=== PATIENT | male | born 1970 | race Hispanic/Latino ===

== ENCOUNTER 2017-05-04 18:16 | Inpatient (IN) | payer BC ==
[2017-05-04 18:24] VITALS: RESP 18
--- NOTE | 2017-05-04 18:34 | C.PDOC ---
History Of Present Illness 46 y/o male transferred from [facility] for admission under Dr. Lopez for Major depressive disorder. Patient states he is pending a divorce and has been feeling depressed with associated suicidal ideation. Patient reports yesterday he grabbed a knife and tried to cut his throat but did not actually cut himself. No other physical complaints at this time. Time Seen by Provider: 05/04/17 18:22 Chief Complaint (Nursing): Medical Clearance History Per: Patient History/Exam Limitations: no limitations Onset/Duration Of Symptoms: Days Current Symptoms Are (Timing): Still Present Past Medical History Reviewed: Historical Data, Nursing Documentation, Vital Signs Vital Signs: Last Vital Signs Temp 97.6 F 05/04/17 18:18 Pulse 73 05/04/17 18:18 Resp 18 05/04/17 18:18 BP 150/90 05/04/17 18:18 Pulse Ox 96 05/04/17 18:35 - Medical History PMH: Depression Surgical History: No Surg Hx Family History: States: No Known Family Hx - Social History Hx Alcohol Use: No Hx Substance Use: No Review Of Systems Constitutional: Negative for: Fever, Chills Cardiovascular: Negative for: Chest Pain Gastrointestinal: Negative for: Nausea, Vomiting Psych: Positive for: Depression, Suicidal ideation. Negative for: Anxiety Physical Exam - Physical Exam Appears: Non-toxic, No Acute Distress Skin: Warm, Dry, No Rash Head: Atraumatic, Normacephalic Eye(s): bilateral: Normal Inspection Oral Mucosa: Moist Neck: Normal ROM, Supple Cardiovascular: Rhythm Regular Respiratory: Normal Breath Sounds, No Rales, No Rhonchi, No Wheezing Gastrointestinal/Abdominal: Soft, No Tenderness, No Guarding, No Rebound Extremity: Normal ROM, Capillary Refill (<2 seconds) Neurological/Psych: Oriented x3, Normal Speech, Normal Cognition ED Course And Treatment O2 Sat by Pulse Oximetry: 96 (RA) Pulse Ox Interpretation: Normal Medical Decision Making Medical Decision Making: Progress: Patient is medically cleared and accepted to Dr. Lopez for Major depressive disorder. Disposition - Disposition Disposition: HOSPITALIZED Disposition Time: 18:30 Condition: STABLE - POA Present On Arrival: None - Clinical Impression Clinical Impression: Major depressive disorder - Scribe Statement The provider has reviewed the documentation as recorded by the Scribgeorgette Min All medical record entries made by the Scribe were at my direction and personally dictated by me. I have reviewed the chart and agree that the record accurately reflects my personal performance of the history, physical exam, medical decision making, and the department course for this patient. I have also personally directed, reviewed, and agree with the discharge instructions and disposition.
--- NOTE | 2017-05-04 19:55 | PCM.BM ---
<Tabatha Landry - Last Filed: 05/04/17 19:53> Treatment Plan Problems - Problems identified on initial assessmt Depression Date Initiated: 05/04/17 Time Initiated: 07:15 Suicidal ideatin Date Initiated: 05/04/17 Time Initiated: 19:55 Status: Monitor Treatment assets and liabiliti Patient Assests: cooperative, physically healthy - Milieu Protocol Maintain good personal hygiene: every shift Encourage regular showers, every shift Remind patient to perform daily oral care, every shift Assist patient to perform ADL's Maintain personal safety: every shift Educate patient to report safety concerns to staff, every shift Monitor environment for contraband/sharps Medication safety: Monitor for expected outcome, potential side effects: every shift, Assess barriers to learning: every shift, Assess readiness for medication education: every shift <Trina Serrano - Last Filed: 05/06/17 10:08> Discharge/Continuing Care - Education Needs Education Needs: Patient Medication, Patient Coping Skills - Discharge Discharge Criteria: Tolerates medication w/o severe side effects, Free of Suicidal thoughts, Reduction of target symptoms <Good Lopez - Last Filed: 05/06/17 10:43> - Diagnosis (1) Major depressive disorder Status: Acute Interventions: 05/06/17 10:43 * Assess/adjust medications daily and /or as needed * See patient on an individual basis 7x/week to assess symptoms of depression * Monitor for side effects & effectiveness of medications *
--- NOTE | 2017-05-05 11:44 | PCM.PSYCH ---
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 Patient states he is currently going through a divorce with his as they have grown apart. He states they were previously for 2 years and he moved out and then he moved back in to work on the marriage but nothing has changed. He states initially it was his idea for a divorce as they were living like roommates. However this past week it just randomly hit him that they are getting a divorce. He states he went to see his nurse practitioner Helen Rosenberg yesterday because he was feeling anxious and he told her he had a knife. He denies having a plan to commit suicide. He denies thoughts of hurting himself or others. He denies hearing voices or seeing things. He states this is his first time being admitted to a psychiatric unit. Denies illicit drug use, denies alcohol or smoking. Psych History: Depression, He states 4 years ago when he was changing jobs he felt depressed and was told he had adjustment disorder. Medical History: denies Family History: denies NKDA Medications: Wellbutrin, Abilify, Lexapro Current Medications: Active Medications Generic Name Dose Route Start Last Admin Trade Name Freq PRN Reason Stop Dose Admin Gabapentin 400 mg 05/05/17 10:00 05/05/17 09:22 Neurontin PO 400 mg TID EJ Administration Hydroxyzine HCl 25 mg 05/04/17 20:28 05/05/17 06:28 Atarax PO 25 mg Q6 PRN Administration Anxiety Ibuprofen 400 mg 05/04/17 20:29 Motrin Tab PO Q6 PRN Pain, moderate (4-7) Sertraline HCl 50 mg 05/05/17 10:00 05/05/17 09:22 Zoloft PO 50 mg DAILY EJ Administration Trazodone HCl 50 mg 05/04/17 22:00 05/04/17 21:02 Desyrel PO 50 mg HS EJ Administration Past Psychiatric History - Past Psychiatric History Pertinent Medical Hx (Current Medical&Sleep Prob, Allergies): Allergies Allergy/AdvReac Type Severity Reaction Status Date / Time No Known Allergies Allergy Unverified 05/04/17 18:24 Abilify 05/04/17 Lexapro 05/04/17 Wellbutrin 05/04/17 Review of Systems - Cardiovascular Cardiovascular: UNREMARKABLE - Gastrointestinal Gastrointestinal: UNREMARKABLE - Neurological Neurological: UNREMARKABLE - Psychiatric Psychiatric: Depression. absent: Hallucinations, Homicidal Ideation, Suicidal Ideation, Visual Hallucinations, Tactile Hallucinations Mental Status Examination - Personal Presentation Personal Presentation: Looks stated age - Affect Affect: Constricted - Motor Activity Motor Activity: Calm - Reliability in Providing Information Reliability in Providing Information: Good - Speech Speech: Organized - Mood Mood: Depressed - Formal Thought Process Formal Thought Process: No Impairment - Cognitive Functions Orientation: Person, Place, Situation, Time Sensorium: Alert Attention/Concentration: Attentive Judgement: Intact, as evidence by: Insight regarding need for hospitalization Memory: Recent intact, as evidence by: Ability to recall events of the day - Strength & Assets Inventory Strength & Assets Inventory: Employment history DSM 5 DX - DSM 5 DSM 5 Diagnosis: Major Depression - Recommended/Plan of Treatment Treatment Recommendations and Plan of Treatment: Gabapentin for augmentation Zoloft Trazodone As needed medications All risks, benefits and alternatives of the meds discussed, and the pt agreed and understood. Attend groups and activities Individual therapy daily Supportive therapy and psychoeducation CO for abstinence CBT for relapse prevention Encourage MAT Refer to rehab or IOP, and self-help groups Refer to outpatient program Teach healthy lifestyle methods, i.e. diet, exercise, meditation 34 min
--- NOTE | 2017-05-06 10:43 | PCM.PYCHPN ---
Psychiatric Progress Note - Psychiatric Progress Note Patient seen today, length of contact: 15 min Patient Chief Complaint: I am feeling little better.' Problems Identified/Issues Discussed: Patient seen and evaluated, chart reviewed and discussed with the nurse. Pt reports some improvement in his depressed mood. Patient is compliant with medications and denies any side effects. Symptoms are improving but need more time to stabilize. Support and psychoeducation given. Medication Change: Yes (start Remeron, increase Wellbutrin) Medical Record Reviewed: Yes Mental Status Examination - Cognitive Function Orientation: Person, Place, Situation, Time Memory: Intact Attention: WNL Concentration: WNL Association: WNL Fund of Knowledge: Poor - Mood Mood: Depressed - Affect Affect: Constricted - Speech Speech: Soft - Formal Thought Process Formal Thought Process: No Impairment - Suicidal Ideation Suicidal Ideation: No - Homicidal Ideation Homicidal Ideation: No Goal/Treatment Plan - Goal/Treatment Plan Need for Continued Stay: Severe depression anxiety, Severe functional impairment Progress Toward Problem(s) and Goals/Treatment Plan: Major Depressive disorder recurrent severe without psychotic features Gabapentin for augmentation D/C Zoloft Start Remeron Increase Wellbutrin Trazodone As needed medications All risks, benefits and alternatives of the meds discussed, and the pt agreed and understood. Attend groups and activities Individual therapy daily Supportive therapy and psychoeducation CBT for relapse prevention Refer to rehab or IOP, and self-help groups Refer to outpatient program Teach healthy lifestyle methods, i.e. diet, exercise, meditation - Smoking Cessation Smoking Cessation Initiated: No
[2017-05-07 08:38] VITALS: BP 149/86; PULSE 74; TEMP 97.9; O2SAT 97
--- NOTE | 2017-05-07 10:17 | PCM.PYCHDC ---
Mental Status Examination - Mental Status Examination Orientation: Person, Place, Situation, Time Memory: Intact Mood: Neutral Affect: Constricted Speech: Soft Attention: WNL Concentration: WNL Association: WNL Fund of Knowledge: WNL Formal Thought Process: No Impairment Description of patient's judgement and insight: good, fair Psychotic Thoughts and Behaviors: denies any AVH Suicidal Ideation: No Current Homicidal Ideation?: No Discharge Summary - Discharge Note Reason for Hospitalization: 46 year old male with past medical history of depression, one child, lives with and daughter and works at an [employer] ? job. Patient states he is currently going through a divorce with his as they have grown apart. He states they were previously for 2 years and he moved out and then he moved back in to work on the marriage but nothing has changed. He states initially it was his idea for a divorce as they were living like roommates. However this past week it just randomly hit him that they are getting a divorce. He states he went to see his nurse practitioner Helen Rosenberg yesterday because he was feeling anxious and he told her he had a knife. He denies having a plan to commit suicide. He denies thoughts of hurting himself or others. He denies hearing voices or seeing things. He states this is his first time being admitted to a psychiatric unit. Denies illicit drug use, denies alcohol or smoking. Psych History: Depression, He states 4 years ago when he was changing jobs he felt depressed and was told he had adjustment disorder. Consultations:: List each consultation separately and include: 1. Reason for request. 2. Findings. 3. Follow-up Summary of Hospital Course include:: 1. Description of specific treatment plan utilized for patients during their course of treatmen. 2. Summarize the time- course for resolution of acute symptoms and/or regressed behaviors. 3. Describe issues identified and worked on during hospitalization. 4. Describe medication utilized. 5. Describe medical problems identified and treated. 6. Reassessment of suicide risk Summary of Hospital Course: During the course of his stay, patient (pt) started progressively improving and he no longer remained irritable, depressed, and suicidal. His mood and anxiety symptoms were improved and he started attending groups and meetings and started socializing. Patient denied any feelings of hopelessness, helplessness, and worthlessness, denied any problem with the sleep or appetite, denied suicidal ideation or homicidal ideation. Pt denied any auditory or visual hallucinations. He denied any withdrawal symptoms. Some changes were made in his current medications and patient was discharged on following medications. He tolerated these medications very well and denied any side effects. He was discharged to the [facility] in [place]. - Diagnosis (1) Major depressive disorder Status: Acute - Final Diagnosis (DSM 5) Condition upon Discharge: STABLE DSM 5: Major Depressive disorder recurrent severe without psychotic features Disposition: HOME/ ROUTINE Follow-up Treatment Plan: Education: Pt was educated and counseled about the risks and benefits of taking and not taking medications. Pt was educated and counseled about the risks of drinking and abusing drugs. Pt was educated and counseled to go to the ER or call 911 if pt develop suicidal ideation or homicidal ideation, worsening of symptoms or severe side effects of the meds. Prescriptions/Medication Reconciliation: buPROPion [Wellbutrin] 300 mg PO DAILY #30 tab Gabapentin [Neurontin] 400 mg PO BID #60 cap Mirtazapine [Remeron] 30 mg PO HS #30 tab traZODone [Desyrel] 50 mg PO HS #30 tab - Smoking Cessation Smoking Cessation Medication prescribed: No - Antipsychotic Medications Pt discharged on 2 or more routine antipsychotic medications: No
== END 2017-05-07 11:34 | disposition home or self-care (01) | DRG 885 ==
LOC: C.ER 18:16 → C.5E 18:27
PROVIDERS: ADMIT Psychiatry & Neurology Psychiatry; ATTEND Psychiatry & Neurology Psychiatry
PROC: GZHZZZZ Group Psychotherapy (ICD-10-PCS; principal; 2017-05-04)
PROC: GZ58ZZZ Individual Psychotherapy, Cognitive-Behavioral (ICD-10-PCS; 2017-05-04)
PROC: GZ56ZZZ Individual Psychotherapy, Supportive (ICD-10-PCS; 2017-05-04)
DX: F33.2 Major depressive disorder, recurrent severe without psychotic features (principal); R45.851 Suicidal ideations; F41.8 Other specified anxiety disorders